=== PATIENT | female | born 1930 | race Caucasian/White ===

== ENCOUNTER 2018-08-02 15:41 | Inpatient (IN) | payer MEDICARE, MEDICAID ==
[~2018-08-02] VITALS: Ht 152.4 cm; Wt 55.3 kg
[2018-08-02 18:25] LABS: BASOPHILS % 1.3 % (0.0-2.0); HEMATOCRIT. 36.6 % (36.0-48.0); HEMOGLOBIN. 12.2 g/dL (12.0-16.0); LYMPHOCYTES % 15.4 % (20.0-50.0); MEAN CORPUSCULAR HEMOGLOBIN 31.2 pg (28.0-32.0); MEAN CORPUSCULAR VOLUME 93.7 fL (81.0-99.0); MEAN PLATELET VOLUME 9.8 fl (7.4-10.4); MONOCYTES % 9.6 % (2.0-8.0); NEUTROPHILS % 72.7 % (40.0-76.0); PLATELET 177 x1000/uL (130-400); RED BLOOD CELL COUNT 3.91 mill/uL (4.2-5.4); RED CELL DISTRIBUTION WIDTH 12.9 % (11.6-14.6)
[2018-08-02 18:38] LABS: INR 1.1; PARTIAL THROMBOPLASTIN TIME 31.5 sec (23.4-31.0); PROTHROMBIN TIME 11.3 sec (9.6-11.0)
[2018-08-02] MEDS ORDERED: ONDANSETRON HCL 4MG/2ML INJ IV PRN (19:15)
[2018-08-02] MEDS ORDERED: DOCUSATE SODIUM 100MG CAPSULE PO PRN (19:15)
[2018-08-02] MEDS ORDERED: CEFTRIAXONE 1 G PREMIX 50 ML IV SCH ×2 (19:15→20:15)
[2018-08-02] MEDS ORDERED: SODIUM CHLORIDE 0.9% 250 ML IV ONE (19:54)
[2018-08-02] MEDS: IPRATROPIUM/ALBUTEROL 0.5-3(2.5)MG/3ML NEB INH SCH (20:45)
[2018-08-02 23:30] VITALS: BP 183/77
[2018-08-03] VITALS (9 sets, daily range): BP systolic 128–173; BP diastolic 48–90
[2018-08-03] MEDS: HYDROMORPHONE HCL/PF 2MG/ML CPJ IV PRN ×4 (00:22→11:54)
[2018-08-03] MEDS ORDERED: DONE10TA11 MT (01:19)
[2018-08-03] MEDS ORDERED: ASPI-1158 MT (01:25)
[2018-08-03] MEDS ORDERED: BRIM10DR2 EACHEYE (01:25)
[2018-08-03] MEDS ORDERED: DOCU-150 MT (01:26)
[2018-08-03] MEDS ORDERED: DILT-26 MT (01:26)
[2018-08-03] MEDS ORDERED: SIMV20TA6 MT (01:38)
[2018-08-03] MEDS ORDERED: HYDR-4001 MT (01:38)
[2018-08-03] MEDS ORDERED: FURO20TA4 MT (01:38)
[2018-08-03] MEDS ORDERED: ESOM20CA MT (01:38)
[2018-08-03] MEDS ORDERED: NITR0.4T49 SL (01:38)
[2018-08-03] MEDS ORDERED: LACT10SO7 MT (01:38)
[2018-08-03] MEDS ORDERED: MELA3TAB MT (01:38)
[2018-08-03] MEDS ORDERED: FERR325T6 MT (01:38)
[2018-08-03] MEDS ORDERED: POTA-79 MT (01:38)
[2018-08-03] MEDS ORDERED: ACET-2178 MT (01:38)
[2018-08-03] MEDS: CLONIDINE 0.1MG TABLET PO PRN ×2 (06:02→11:44)
[2018-08-03 06:57] LABS: BASOPHILS % 0.5 % (0.0-2.0); EOSINOPHILS % 0.8 % (0.0-5.0); HEMATOCRIT. 37.7 % (36.0-48.0); HEMOGLOBIN. 12.6 g/dL (12.0-16.0); MEAN CORPUSCULAR HEMOGLOBIN 31.7 pg (28.0-32.0); MEAN CORPUSCULAR VOLUME 94.7 fL (81.0-99.0); MEAN PLATELET VOLUME 10.4 fl (7.4-10.4); MONOCYTES % 11.5 % (2.0-8.0); NEUTROPHILS % 76.2 % (40.0-76.0); PLATELET 188 x1000/uL (130-400); RED BLOOD CELL COUNT 3.98 mill/uL (4.2-5.4); RED CELL DISTRIBUTION WIDTH 12.5 % (11.6-14.6)
[2018-08-03 07:18] LABS: CHLORIDE 109 mEq/L (98-107)
[2018-08-03 07:29] LABS: LDL CHOLESTEROL 92 mg/dL (5-100)
[2018-08-03 07:31] LABS: HDL CHOLESTEROL 59 mg/dL (40-59)
[2018-08-03] MEDS: IPRATROPIUM/ALBUTEROL 0.5-3(2.5)MG/3ML NEB INH SCH ×3 (09:22→21:15)
[2018-08-03] MEDS: ENOXAPARIN 40MG/0.4ML SYR SUBCUT SCH (10:22)
[2018-08-03] MEDS ORDERED: DEXTROSE 50% WATER 50ML SYRINGE IV PRN (11:00)
[2018-08-03] MEDS ORDERED: BLOOD SUGAR DIAGNOSTIC STRIP TEST SCH (12:20)
[2018-08-03] MEDS ORDERED: INSULIN LISPRO 100 UNITS/ML SUBCUT SCH (12:50)
[2018-08-03] MEDS ORDERED: DILTIAZEM HCL 5MG/ML 5ML VIAL IV SCH (15:00)
[2018-08-03] MEDS ORDERED: DILTIAZEM HCL 125 MG in DEXT 5% WATER 100 ML IV SCH (15:00)
[2018-08-03] MEDS: ACETAMINOPHEN 325MG TABLET PO PRN (16:53)
[2018-08-03] MEDS: CEFTRIAXONE 1 G PREMIX 50 ML IV SCH (23:05)
[2018-08-04] VITALS (11 sets, daily range): BP systolic 111–148; BP diastolic 46–88
[2018-08-04] MEDS: IPRATROPIUM/ALBUTEROL 0.5-3(2.5)MG/3ML NEB INH SCH ×4 (02:43→21:52)
[2018-08-04 07:01] LABS: BASOPHILS % 0.5 % (0.0-2.0); EOSINOPHILS % 0.6 % (0.0-5.0); HEMATOCRIT. 32.8 % (36.0-48.0); HEMOGLOBIN. 10.9 g/dL (12.0-16.0); LYMPHOCYTES % 12.8 % (20.0-50.0); MEAN CORPUSCULAR HEMOGLOBIN 31.5 pg (28.0-32.0); MEAN CORPUSCULAR VOLUME 94.7 fL (81.0-99.0); MONOCYTES % 12.4 % (2.0-8.0); NEUTROPHILS % 73.7 % (40.0-76.0); PLATELET 161 x1000/uL (130-400); RED BLOOD CELL COUNT 3.46 mill/uL (4.2-5.4); RED CELL DISTRIBUTION WIDTH 12.7 % (11.6-14.6)
[2018-08-04 07:29] LABS: CHLORIDE 108 mEq/L (98-107)
[2018-08-04] MEDS: ACETAMINOPHEN 325MG TABLET PO PRN ×2 (08:34→16:16)
[2018-08-04] MEDS ORDERED: DILTIAZEM HCL 125 MG in DEXT 5% WATER 100 ML IV SCH (08:57)
[2018-08-04] MEDS: DILTIAZEM HCL 60MG TABLET PO SCH ×3 (10:00→22:53)
[2018-08-04] MEDS: ENOXAPARIN 40MG/0.4ML SYR SUBCUT SCH (10:00)
[2018-08-04] MEDS: CEFTRIAXONE 1 G PREMIX 50 ML IV SCH (22:52)
[2018-08-04] MEDS: HYDROMORPHONE HCL/PF 2MG/ML CPJ IV PRN (22:54)
[2018-08-05] VITALS (7 sets, daily range): BP systolic 121–149; BP diastolic 50–86
[2018-08-05] MEDS: IPRATROPIUM/ALBUTEROL 0.5-3(2.5)MG/3ML NEB INH SCH ×2 (02:38→08:55)
[2018-08-05] MEDS: DILTIAZEM HCL 60MG TABLET PO SCH (06:02)
[2018-08-05 06:56] LABS: BASOPHILS % 0.6 % (0.0-2.0); EOSINOPHILS % 1.4 % (0.0-5.0); HEMATOCRIT. 32.4 % (36.0-48.0); HEMOGLOBIN. 10.9 g/dL (12.0-16.0); LYMPHOCYTES % 13.3 % (20.0-50.0); MEAN CORPUSCULAR HEMOGLOBIN 31.6 pg (28.0-32.0); MONOCYTES % 10.4 % (2.0-8.0); NEUTROPHILS % 74.3 % (40.0-76.0); PLATELET 196 x1000/uL (130-400); RED BLOOD CELL COUNT 3.45 mill/uL (4.2-5.4); RED CELL DISTRIBUTION WIDTH 12.5 % (11.6-14.6)
[2018-08-05] MEDS: ACETAMINOPHEN 325MG TABLET PO PRN (08:30)
[2018-08-05] MEDS ORDERED: ENOXAPARIN 30MG/0.3ML SYR SUBCUT SCH (10:00)
[2018-08-05] MEDS ORDERED: PREDNISOLONE ACETATE 1% OPHTH DROPS 1ML RIGHTEYE SCH (12:00)
[2018-08-05] MEDS ORDERED: CIPROFLOXACIN 0.3% OPHTH SOLN 2.5ML RIGHTEYE SCH (13:00)
== END 2018-08-05 12:47 | DRG 125 ==
LOC: ER 15:41 → 6EST 18:57 → ENRESERV 22:28 → 5EST 08-03 14:20
PROVIDERS: ADMIT Internal Medicine Nephrology; ATTEND Internal Medicine Nephrology
DX: H04.19 Other specified disorders of lacrimal gland (principal); E44.0 Moderate protein-calorie malnutrition; I13.0 Hypertensive heart and chronic kidney disease with heart failure and stage 1 through stage 4 chronic kidney disease, or unspecified chronic kidney disease; I67.82 Cerebral ischemia; I50.9 Heart failure, unspecified; N18.9 Chronic kidney disease, unspecified; I48.91 Unspecified atrial fibrillation; F03.90 Unspecified dementia, unspecified severity, without behavioral disturbance, psychotic disturbance, mood disturbance, and anxiety; J44.9 Chronic obstructive pulmonary disease, unspecified; D63.8 Anemia in other chronic diseases classified elsewhere; D72.829 Elevated white blood cell count, unspecified; E78.5 Hyperlipidemia, unspecified; H25.12 Age-related nuclear cataract, left eye; H40.9 Unspecified glaucoma; F32.9 Major depressive disorder, single episode, unspecified; K21.9 Gastro-esophageal reflux disease without esophagitis; I25.10 Atherosclerotic heart disease of native coronary artery without angina pectoris; Z86.73 Personal history of transient ischemic attack (TIA), and cerebral infarction without residual deficits; Z91.81 History of falling; Z87.440 Personal history of urinary (tract) infections; Z88.1 Allergy status to other antibiotic agents; Z68.23 Body mass index [BMI] 23.0-23.9, adult
CPT/HCPCS: 36415; 70480; 71045; 80048; 80061; 83735; 84443; 84484; 93005; 93306; 93970; 94640; 96365; 99285; A6261; J0696; J1170; J1650; J2405; J3490; J7050; J7060; J7620